=== PATIENT | female | born 1985 | race Caucasian/White ===

== ENCOUNTER 2020-06-09 09:57 | Inpatient (IN) ==
[2020-06-09] MEDS ORDERED: Famotidine 20 MG/2 ML VIAL IVP ONE (10:14)
[2020-06-09] MEDS ORDERED: CeFAZolin 2,000 MG/50 ML BAG IVPB ONE (10:14)
[2020-06-09] MEDS ORDERED: Oxytocin 20 units/ LR 1000 mL 20 UNIT/1,000 ML BAG IVC ONE (10:14)
[2020-06-09] MEDS ORDERED: Metoclopramide 10 MG/2 ML VIAL IVP ONE (10:14)
[2020-06-09] MEDS ORDERED: Oxytocin 20 units/ LR 1000 mL 20 UNIT/1,000 ML BAG IVC SCH ×3 (10:15→16:53)
[2020-06-09] MEDS ORDERED: Ringers Solution, Lactated 1,000 ML IVC SCH ×3 (10:15→16:53)
[2020-06-09] MEDS ORDERED: Acetaminophen IV 1,000 MG/100 ML INFUS..BTL ONE (10:47)
[2020-06-09] MEDS ORDERED: *HR* Morphine Sulfate/PF 10 MG/10 ML AMPUL ONE (10:47)
[2020-06-09] MEDS ORDERED: *HR* FentaNYL (PF) 100 MCG/2 ML VIAL ONE (10:47)
[2020-06-09] MEDS ORDERED: Ondansetron 4 MG/2 ML VIAL ONE (10:47)
[2020-06-09] MEDS ORDERED: EPHEDrine 50 MG/ML VIAL ONE (10:47)
[2020-06-09] MEDS ORDERED: Bupivacaine/PF 0.75% in Dex 2 ML AMPUL INFILT ONE (10:49)
[2020-06-09] MEDS ORDERED: Ondansetron 4 MG/2 ML VIAL IVP PRN ×2 (11:01→16:53)
[2020-06-09] MEDS ORDERED: *HR* Meperidine 25 MG/ML SYRINGE IVP PRN (11:01)
[2020-06-09] MEDS ORDERED: *HR* Promethazine 25 MG/ML VIAL IVP PRN (11:01)
[2020-06-09] MEDS ORDERED: *HR* OxyCODONE/APAP 5/325 TABLET PO PRN (11:01)
[2020-06-09] MEDS ORDERED: *HR* HYDROmorphone PF 0.5 MG/0.5 ML SYRINGE IVP PRN (11:01)
[2020-06-09] MEDS: Ringers Solution, Lactated 1,000 ML IVC ONE ×2 (11:54→12:17)
[2020-06-09 11:59] LABS: Basophils % 0.2 %; Eosinophils # 0.2 K/mcL (0.0-0.6); Eosinophils % 1.4 %; Hematocrit 33.1 % (35.3-44.9); Hemoglobin 10.5 g/dL (11.5-15.4); Immature Granulocytes % 1.1 % (0-4); Lymphocytes # 1.6 K/mcL (0.6-4.6); Lymphocytes % 15.1 %; Mean Corpuscular HGB Conc 31.7 g/dL (31.6-35.5); Mean Corpuscular Volume 85.1 fL (83.0-100.0); Mean Platelet Volume 12.9 fL (9.4-12.4); Monocytes # 0.7 K/mcL (0.0-1.3); Monocytes % 6.8 %; Neutrophils # 7.9 K/mcL (1.6-8.9); Platelet Count 223 K/mcL (140-400); Red Blood Count 3.89 M/mcL (3.82-4.97); Red Cell Distribution Width 13.2 % (11.5-14.5); Segmented Neutrophils % 75.4 %; White Blood Count 10.5 K/mcL (4.3-11.1)
[2020-06-09 12:26] LABS: Amphetamine Screen,Urine Negative ng/mL (Cutoff=1000); Barbiturate Screen,Urine Negative ng/mL (Cutoff=200); Benzodiazepines Screen,Urine Negative ng/mL (Cutoff=200); Cannabinoid Screen,Urine Negative ng/mL (Cutoff = 50); Cocaine Screen,Urine Negative ng/mL (Cutoff= 300); Opiate Screen,Urine Negative ng/mL (Cutoff=300); Phencyclidine Screen,Urine Negative ng/mL (Cutoff=25)
[2020-06-09] MEDS ORDERED: Metoclopramide 10 MG/2 ML VIAL IVP PRN (16:53)
[2020-06-09] MEDS ORDERED: Rho Immune Globulin 1,500 UNIT SYRINGE IM ONE (16:53)
[2020-06-09] MEDS ORDERED: Sennosides 8.6 MG TABLET PO PRN (16:53)
[2020-06-09] MEDS: Ibuprofen 600 MG TABLET PO PRN (17:45)
[2020-06-10 03:25] LABS: Basophils % 0.2 %; Eosinophils # 0.1 K/mcL (0.0-0.6); Eosinophils % 0.9 %; Hematocrit 24.4 % (35.3-44.9); Immature Granulocytes % 0.9 % (0-4); Lymphocytes # 1.3 K/mcL (0.6-4.6); Lymphocytes % 12.1 %; Mean Corpuscular HGB Conc 31.1 g/dL (31.6-35.5); Mean Corpuscular Hemoglobin 26.6 pg (28.0-33.3); Mean Corpuscular Volume 85.3 fL (83.0-100.0); Mean Platelet Volume 12.8 fL (9.4-12.4); Monocytes # 0.9 K/mcL (0.0-1.3); Monocytes % 8.2 %; Neutrophils # 8.4 K/mcL (1.6-8.9); Platelet Count 185 K/mcL (140-400); Red Blood Count 2.86 M/mcL (3.82-4.97); Red Cell Distribution Width 13.2 % (11.5-14.5); Segmented Neutrophils % 77.7 %; White Blood Count 10.8 K/mcL (4.3-11.1)
[2020-06-10 03:28] LABS: Hemoglobin 7.6 g/dL (11.5-15.4)
[2020-06-10] MEDS: Ibuprofen 600 MG TABLET PO PRN ×3 (04:08→21:18)
[2020-06-10] MEDS: Simethicone 80 MG TAB.CHEW PO PRN ×4 (04:47→21:17)
[2020-06-10] MEDS: Prenatal Vit/FA 1 EACH TABLET PO SCH (08:05)
[2020-06-10] MEDS: *HR* OxyCODONE/APAP 5/325 TABLET PO PRN ×2 (08:09→14:16)
[2020-06-10] MEDS ORDERED: NON-FORMULARY MEDICATION 1 EACH EACH (Prenatal 19 Tablet 1 TAB) PO SCH (09:00)
[2020-06-10 09:55] LABS: Basophils % 0.2 %; Eosinophils # 0.1 K/mcL (0.0-0.6); Eosinophils % 0.9 %; Hematocrit 23.7 % (35.3-44.9); Hemoglobin 7.8 g/dL (11.5-15.4); Immature Granulocytes % 0.9 % (0-4); Lymphocytes # 1.2 K/mcL (0.6-4.6); Lymphocytes % 11.3 %; Mean Corpuscular HGB Conc 32.9 g/dL (31.6-35.5); Mean Corpuscular Hemoglobin 28.3 pg (28.0-33.3); Mean Corpuscular Volume 85.9 fL (83.0-100.0); Mean Platelet Volume 12.8 fL (9.4-12.4); Monocytes # 0.8 K/mcL (0.0-1.3); Neutrophils # 8.3 K/mcL (1.6-8.9); Platelet Count 195 K/mcL (140-400); Red Blood Count 2.76 M/mcL (3.82-4.97); Red Cell Distribution Width 13.4 % (11.5-14.5); Segmented Neutrophils % 78.7 %; White Blood Count 10.5 K/mcL (4.3-11.1)
[2020-06-11] MEDS: Ibuprofen 600 MG TABLET PO PRN ×2 (05:32→13:06)
[2020-06-11 08:08] VITALS: BP 120/73
[2020-06-11] MEDS: Prenatal Vit/FA 1 EACH TABLET PO SCH (08:54)
[2020-06-11] MEDS: *HR* OxyCODONE/APAP 5/325 TABLET PO PRN (09:08)
[2020-06-11] MEDS: Simethicone 80 MG TAB.CHEW PO PRN (09:09)
== END 2020-06-11 14:45 | disposition home or self-care (01) | DRG 787 ==
LOC: 1NENULAB 09:57 → 1NENUOBS 15:48
PROVIDERS: ADMIT Student in an Organized Health Care Education/Training Program; ATTEND Student in an Organized Health Care Education/Training Program